=== PATIENT | male | born 1945 | race Caucasian/White ===

== ENCOUNTER 2017-06-10 13:37 | Inpatient (IN) | payer MEDICARE ==
[2017-06-10] MEDS: NS 1,000 ML IV ×6 (13:49→21:40)
[2017-06-10 14:16] LABS: HEMATOCRIT 24.8 % (42.0-52.0); HEMOGLOBIN 8.3 g/dl (14.0-18.0); MEAN CORPUSCULAR HEMOGLOBIN 30.3 pg (27.0-33.0); MEAN CORPUSCULAR HGB CONC 33.5 g/dl (32.0-36.5); MEAN CORPUSCULAR VOLUME 90.5 fl (80.0-96.0); PLATELET COUNT, AUTOMATED 183 10^3/uL (150-450); RED BLOOD COUNT 2.74 10^6/uL (4.30-6.10); RED CELL DISTRIBUTION WIDTH 16.4 % (11.5-14.5); WHITE BLOOD COUNT 13.6 10^3/uL (4.0-10.0)
[2017-06-10 14:19] LABS: ADD MANUAL DIFFER YES; DIFF SLIDE NUMBER 231; POSITIVE DIFF POS FLAG; POSITIVE MORPH POS FLAG
[2017-06-10 14:38] LABS: ALBUMIN 3.2 GM/DL (3.2-5.2); ALBUMIN/GLOBULIN RATIO 0.89 (1.00-1.93); ALKALINE PHOSPHATASE 46 U/L (45-117); ALT/SGPT 19 U/L (12-78); ANION GAP 11 MEQ/L (8-16); AST/SGOT 16 U/L (7-37); BILIRUBIN,DIRECT 0.2 MG/DL (0.0-0.2); BILIRUBIN,TOTAL 0.7 MG/DL (0.2-1.0); BLOOD UREA NITROGEN 39 MG/DL (7-18); CALCIUM LEVEL 8.4 MG/DL (8.8-10.2); CARBON DIOXIDE LEVEL 24 MEQ/L (21-32); CHLORIDE LEVEL 95 MEQ/L (98-107); CREATININE FOR GFR 2.12 MG/DL (0.70-1.30); GLUCOSE, FASTING 180 MG/DL (70-100); LIPASE 158 U/L (73-393); POTASSIUM SERUM 4.7 MEQ/L (3.5-5.1); SODIUM LEVEL 130 MEQ/L (136-145); TOTAL PROTEIN 6.8 GM/DL (6.4-8.2)
[2017-06-10 14:43] LABS: LACTIC ACID SEPSIS PROTOCOL 2.5 MMOL/L (0.4-2.0)
[2017-06-10 14:43] LABS: ANISOCYTOSIS 1+; BANDS 4 % (< 11); LYMPHOCYTES 4 % (16-52); MONOCYTES 3 % (0-8); NEUTROPHILS 89 % (35-75); PLATELET ESTIMATE NORMAL (NORMAL)
[2017-06-10 15:15] LABS: CK-MB VALUE MASS 2.2 NG/ML (0.0-3.6); CPK CREATINE PHOSPHOKINASE 128 U/L (39-308); MB/CK RELATIVE INDEX 1.71 (< OR =4); TROPONIN I 0.14 NG/ML (< 0.10)
[2017-06-10] MEDS: CEFTRIAXONE SOD 2 GM in APPROPRIATE DILUENT 1 EA IV (15:55)
[2017-06-10 16:05] LABS: APPEARANCE, URINE HAZY (CLEAR); BACTERIA, URINE AUTO 1+ (NEGATIVE); BILIRUBIN, URINE AUTO NEGATIVE (NEGATIVE); BLOOD, URINE BLOOD NEGATIVE (NEGATIVE); COLOR, URINE YELLOW (YELLOW); GLUCOSE, URINE (UA) AUTO NEGATIVE (NEGATIVE); KETONE, URINE AUTO NEGATIVE (NEGATIVE); LEUKOCYTE ESTERASE, URINE AUTO 2+ (NEGATIVE); MUCUS, URINE SMALL (NEGATIVE); NITRITE, URINE AUTO NEGATIVE (NEGATIVE); PROTEIN, URINE AUTO NEGATIVE (NEGATIVE); RBC, URINE AUTO 2 /HPF (0-3); SPECIFIC GRAVITY URINE AUTO 1.015 (1.002-1.035); SQUAMOUS EPITHELIAL CELL UR AU 0 /HPF (0-6); UROBILINOGEN, URINE AUTO 0.2 mg/dL (0.0-2.0); WBC, URINE AUTO 15 /HPF (0-3)
[2017-06-10] MEDS ORDERED: METAL LOCK LOOP XX (17:03)
[2017-06-10] MEDS: HumaLOG INSULIN (NovoLOG) PER UNIT SC ×2 (17:30→21:00)
[2017-06-10] MEDS ORDERED: GLUCAGON FOR INJ 1 MG VIAL (J1610) SC (17:30)
[2017-06-10] MEDS ORDERED: DEXTROSE 50% 50 ML SYRINGE IV (17:30)
[2017-06-10] MEDS ORDERED: ACETAMINOPHEN TAB 650MG DOSE (2X325MG) PO (17:30)
[2017-06-10] MEDS ORDERED: ONDANSETRON 4MG/2ML VIAL (J2405) IV (17:30)
[2017-06-10] MEDS ORDERED: GLUCOSE 4 GM CHEW TABLET PO (17:30)
[2017-06-10] MEDS ORDERED: DOXYCYCLINE HYCLATE 100 MG in D5W MINI-BAG PLUS 100 ML IV (20:00)
[2017-06-10 20:45] LABS: BEDSIDE GLUCOSE 180 MG/DL (83-110)
[2017-06-10] MEDS: HEPARIN SOD (PORCINE) 5000 UNITS/ML VIAL SC (21:40)
[2017-06-10] MEDS: SIMVASTATIN 5 MG TAB PO (21:41)
[2017-06-10] MEDS: PIPERACILLIN/TAZOBACTAM SOD 2.25 GM in APPROPRIATE DILUENT 1 EA IV (21:41)
[2017-06-10 22:02] LABS: BEDSIDE GLUCOSE 203 MG/DL (83-110)
[2017-06-10] MEDS: DOXYCYCLINE HYCLATE 100 MG in D5W MINI-BAG PLUS 100 ML IV (22:49)
[2017-06-10] MEDS: NS 500 ML IV (23:00)
[2017-06-11 00:48] LABS: CK-MB VALUE MASS 2.1 NG/ML (0.0-3.6); CPK CREATINE PHOSPHOKINASE 122 U/L (39-308); MB/CK RELATIVE INDEX 1.72 (< OR =4); TROPONIN I 0.26 NG/ML (< 0.10)
[2017-06-11] MEDS: NS 1,000 ML IV ×2 (03:00→04:59)
[2017-06-11] MEDS: PIPERACILLIN/TAZOBACTAM SOD 2.25 GM in APPROPRIATE DILUENT 1 EA IV ×4 (04:59→21:51)
[2017-06-11] MEDS: HEPARIN SOD (PORCINE) 5000 UNITS/ML VIAL SC ×3 (05:05→21:44)
[2017-06-11 07:33] LABS: HEMATOCRIT 24.5 % (42.0-52.0); MEAN CORPUSCULAR HEMOGLOBIN 29.7 pg (27.0-33.0); MEAN CORPUSCULAR HGB CONC 32.7 g/dl (32.0-36.5); MEAN CORPUSCULAR VOLUME 91.1 fl (80.0-96.0); PLATELET COUNT, AUTOMATED 193 10^3/uL (150-450); RED BLOOD COUNT 2.69 10^6/uL (4.30-6.10); RED CELL DISTRIBUTION WIDTH 16.5 % (11.5-14.5); WHITE BLOOD COUNT 7.8 10^3/uL (4.0-10.0)
[2017-06-11 07:56] LABS: ALBUMIN 2.6 GM/DL (3.2-5.2); ALKALINE PHOSPHATASE 45 U/L (45-117); ALT/SGPT 20 U/L (12-78); ANION GAP 10 MEQ/L (8-16); AST/SGOT 18 U/L (7-37); BILIRUBIN,TOTAL 0.4 MG/DL (0.2-1.0); BLOOD UREA NITROGEN 30 MG/DL (7-18); CALCIUM LEVEL 7.2 MG/DL (8.8-10.2); CARBON DIOXIDE LEVEL 21 MEQ/L (21-32); CHLORIDE LEVEL 109 MEQ/L (98-107); CK-MB VALUE MASS 2.7 NG/ML (0.0-3.6); CPK CREATINE PHOSPHOKINASE 146 U/L (39-308); CREATININE FOR GFR 1.51 MG/DL (0.70-1.30); GLOMERULAR FILTRATION RATE 48.9 (>42); GLUCOSE, FASTING 140 MG/DL (70-100); MAGNESIUM LEVEL 1.7 MG/DL (1.8-2.4); MB/CK RELATIVE INDEX 1.84 (< OR =4); SODIUM LEVEL 140 MEQ/L (136-145); TOTAL PROTEIN 6.3 GM/DL (6.4-8.2); TROPONIN I 0.28 NG/ML (< 0.10)
[2017-06-11] MEDS: HumaLOG INSULIN (NovoLOG) PER UNIT SC ×4 (08:49→20:02)
[2017-06-11] MEDS: MAG SULF 1GM/100ML (MAG RUN) 1 GM in APPROPRIATE DILUENT 1 EA IV ×2 (08:58→11:14)
[2017-06-11] MEDS: DOXYCYCLINE HYCLATE 100 MG in D5W MINI-BAG PLUS 100 ML IV ×2 (11:14→22:37)
[2017-06-11 11:56] LABS: BEDSIDE GLUCOSE 180 MG/DL (83-110)
[2017-06-11 15:53] LABS: CPK CREATINE PHOSPHOKINASE 160 U/L (39-308); TROPONIN I 0.22 NG/ML (< 0.10)
[2017-06-11 15:54] LABS: CK-MB VALUE MASS 3.2 NG/ML (0.0-3.6)
[2017-06-11 16:47] LABS: BEDSIDE GLUCOSE 216 MG/DL (83-110)
[2017-06-11] MEDS: diphenhydrAMINE 25 MG CAP PO (20:34)
[2017-06-11] MEDS: SIMVASTATIN 5 MG TAB PO (20:34)
[2017-06-11] MEDS: zolPIDEM TARTRATE 5 MG TAB PO (22:36)
[2017-06-12] MEDS ORDERED: IPRATROPIUM 0.5MG/ALBUTEROL 2.5MG INH SOL UD 3ML (DUONEB)(J7620) NEB (02:30)
[2017-06-12 02:39] LABS: BEDSIDE GLUCOSE 166 MG/DL (83-110)
[2017-06-12] MEDS: FUROSEMIDE 20 MG/2 ML VIAL (J1940) IV (03:10)
[2017-06-12] MEDS: PIPERACILLIN/TAZOBACTAM SOD 2.25 GM in APPROPRIATE DILUENT 1 EA IV (04:21)
[2017-06-12 05:51] LABS: HEMATOCRIT 24.8 % (42.0-52.0); HEMOGLOBIN 7.8 g/dl (14.0-18.0); MEAN CORPUSCULAR HEMOGLOBIN 29.8 pg (27.0-33.0); MEAN CORPUSCULAR HGB CONC 31.5 g/dl (32.0-36.5); MEAN CORPUSCULAR VOLUME 94.7 fl (80.0-96.0); PLATELET COUNT, AUTOMATED 212 10^3/uL (150-450); RED BLOOD COUNT 2.62 10^6/uL (4.30-6.10); RED CELL DISTRIBUTION WIDTH 16.4 % (11.5-14.5); WHITE BLOOD COUNT 10.1 10^3/uL (4.0-10.0)
[2017-06-12 06:05] LABS: ALBUMIN 2.5 GM/DL (3.2-5.2); ALBUMIN/GLOBULIN RATIO 0.69 (1.00-1.93); ALKALINE PHOSPHATASE 46 U/L (45-117); ALT/SGPT 18 U/L (12-78); ANION GAP 9 MEQ/L (8-16); AST/SGOT 14 U/L (7-37); BILIRUBIN,TOTAL 0.3 MG/DL (0.2-1.0); BLOOD UREA NITROGEN 27 MG/DL (7-18); CALCIUM LEVEL 7.6 MG/DL (8.8-10.2); CARBON DIOXIDE LEVEL 22 MEQ/L (21-32); CHLORIDE LEVEL 112 MEQ/L (98-107); CREATININE FOR GFR 1.36 MG/DL (0.70-1.30); GLOMERULAR FILTRATION RATE 55.2 (>42); GLUCOSE, FASTING 180 MG/DL (70-100); MAGNESIUM LEVEL 2.3 MG/DL (1.8-2.4); POTASSIUM SERUM 4.1 MEQ/L (3.5-5.1); SODIUM LEVEL 143 MEQ/L (136-145); TOTAL PROTEIN 6.1 GM/DL (6.4-8.2)
[2017-06-12] MEDS: HEPARIN SOD (PORCINE) 5000 UNITS/ML VIAL SC ×3 (06:32→21:49)
[2017-06-12] MEDS: LevoFLOXacin 500 MG TABLET PO (09:19)
[2017-06-12] MEDS: HumaLOG INSULIN (NovoLOG) PER UNIT SC ×4 (09:20→20:38)
[2017-06-12 16:36] LABS: BEDSIDE GLUCOSE 241 MG/DL (83-110)
[2017-06-12] MEDS: SIMVASTATIN 5 MG TAB PO (21:00)
[2017-06-13 05:33] LABS: HEMATOCRIT 26.2 % (42.0-52.0); MEAN CORPUSCULAR HEMOGLOBIN 29.2 pg (27.0-33.0); MEAN CORPUSCULAR HGB CONC 30.5 g/dl (32.0-36.5); MEAN CORPUSCULAR VOLUME 95.6 fl (80.0-96.0); PLATELET COUNT, AUTOMATED 237 10^3/uL (150-450); RED BLOOD COUNT 2.74 10^6/uL (4.30-6.10); RED CELL DISTRIBUTION WIDTH 16.2 % (11.5-14.5); WHITE BLOOD COUNT 8.9 10^3/uL (4.0-10.0)
[2017-06-13 05:48] LABS: ALBUMIN 2.6 GM/DL (3.2-5.2); ALKALINE PHOSPHATASE 54 U/L (45-117); ALT/SGPT 21 U/L (12-78); ANION GAP 11 MEQ/L (8-16); AST/SGOT 15 U/L (7-37); BILIRUBIN,TOTAL 0.4 MG/DL (0.2-1.0); BLOOD UREA NITROGEN 27 MG/DL (7-18); CALCIUM LEVEL 7.2 MG/DL (8.8-10.2); CARBON DIOXIDE LEVEL 20 MEQ/L (21-32); CHLORIDE LEVEL 114 MEQ/L (98-107); CREATININE FOR GFR 1.16 MG/DL (0.70-1.30); GLOMERULAR FILTRATION RATE > 60.0 (>42); GLUCOSE, FASTING 155 MG/DL (70-100); MAGNESIUM LEVEL 2.2 MG/DL (1.8-2.4); POTASSIUM SERUM 4.3 MEQ/L (3.5-5.1); SODIUM LEVEL 145 MEQ/L (136-145); TOTAL PROTEIN 5.5 GM/DL (6.4-8.2)
[2017-06-13] MEDS: HEPARIN SOD (PORCINE) 5000 UNITS/ML VIAL SC (06:00)
[2017-06-13] MEDS: LevoFLOXacin 500 MG TABLET PO (06:00)
[2017-06-13] MEDS ORDERED: LevoFLOXacin 500 MG TABLET As Ordered (06:12)
[2017-06-13] MEDS ORDERED: HEPARIN SOD (PORCINE) 5000 UNITS/ML VIAL As Ordered (06:12)
[2017-06-13] MEDS: HumaLOG INSULIN (NovoLOG) PER UNIT SC (08:10)
[2017-06-13 11:43] LABS: BEDSIDE GLUCOSE 133 MG/DL (83-110)
[2017-06-13 11:43] LABS: BEDSIDE GLUCOSE 202 MG/DL (83-110)
== END 2017-06-13 12:34 | disposition home or self-care (01) | DRG 872 ==
LOC: M ED 13:37 → M ED INP 17:06 → M PCU 20:59
DX: A41.9 Sepsis, unspecified organism (principal); N39.0 Urinary tract infection, site not specified; N17.9 Acute kidney failure, unspecified; E87.2 Acidosis; E87.1 Hypo-osmolality and hyponatremia; E11.9 Type 2 diabetes mellitus without complications; E78.5 Hyperlipidemia, unspecified; R33.9 Retention of urine, unspecified; S12.590S Other displaced fracture of sixth cervical vertebra, sequela; S12.6 Fracture of seventh cervical vertebra; G83.9 Paralytic syndrome, unspecified; R65.20 Severe sepsis without septic shock; N31.9 Neuromuscular dysfunction of bladder, unspecified; D64.9 Anemia, unspecified; Z79.84 Long term (current) use of oral hypoglycemic drugs; Z79.899 Other long term (current) drug therapy; Z87.891 Personal history of nicotine dependence

== ENCOUNTER 2022-09-12 14:11 | Inpatient (IN) | payer MEDICARE ==
[~2022-09-12] VITALS: Ht 180.3 cm; Wt 83.8 kg
[~2022-09-12 14:11] MED LIST: /ASCO250TA PO; CIPR500T89 PO; COUM1TAB18 PO; CRAN400T3 PO; LASI20TA PO; LASI40TA PO; LEVA1TAB2 PO; METF500T PO; MULTTAB50 PO; NITR100C37 PO; OXYC1TAB23 PO; POTA-136 PO; POTA2INJ30 PO; POTA75TA PO; SIMV-253 PO; SIMV5TAB12 PO; SULF400T14 PO; TRIM100T16 PO; TYLE1TAB5 PO; TYLE325T5 PO; ULTR50TA PO
[2022-09-12 16:07] LABS: BASO % 0.4 % (0.0-1.0); EOS # 0.2 10^3/uL (0.0-0.5); HEMATOCRIT 33.3 % (42.0-52.0); HEMOGLOBIN 10.5 g/dl (13.5-17.5); LYMPH # 0.5 10^3/uL (1.5-5.0); LYMPH % 4.5 % (24.0-44.0); MEAN CORPUSCULAR HEMOGLOBIN 30.4 pg (27.0-33.0); MEAN CORPUSCULAR HGB CONC 31.5 g/dl (32.0-36.5); MEAN CORPUSCULAR VOLUME 96.5 fl (80.0-96.0); MONO # 0.7 10^3/uL (0.0-0.8); MONO % 6.8 % (2.0-8.0); NEUTROPHILS # 9.1 10^3/uL (1.5-8.5); NEUTROPHILS % 85.6 % (36.0-66.0); PLATELET COUNT, AUTOMATED 221 10^3/uL (150-450); RED BLOOD COUNT 3.45 10^6/uL (4.30-6.10); WHITE BLOOD COUNT 10.7 10^3/uL (4.0-10.0)
[2022-09-12 16:58] LABS: ERYTHROCYTE SEDIMENTATION RATE 75 mm/hr (0-20)
[2022-09-12] MEDS ORDERED: ISOVUE-370 76% 100ML VIAL As Ordered ONE (17:47)
[2022-09-12] MEDS ORDERED: GLUCOSE 4GM CHEW TABLET PO PRN (20:40)
[2022-09-12] MEDS ORDERED: GLUCAGON INJ 1MG VIAL SC PRN (20:40)
[2022-09-12] MEDS ORDERED: DEXTROSE 50% 50ML SYRINGE IV PRN (20:40)
[2022-09-12] MEDS ORDERED: VANCOMYCIN HCL IV SCH (20:40)
[2022-09-12] MEDS ORDERED: FLUID PLACE HOLDER IV SCH (20:40)
[2022-09-12] MEDS: INSULIN LISPRO (NovoLOG) PER UNIT SC SCH (21:00)
[2022-09-12 21:14] LABS: APPEARANCE, URINE CLEAR (CLEAR); BACTERIA, URINE AUTO NEGATIVE (NEGATIVE); BILIRUBIN, URINE AUTO NEGATIVE (NEGATIVE); BLOOD, URINE BLOOD NEGATIVE (NEGATIVE); COLOR, URINE STRAW (YELLOW); GLUCOSE, URINE (UA) AUTO NEGATIVE (NEGATIVE); KETONE, URINE AUTO NEGATIVE (NEGATIVE); LEUKOCYTE ESTERASE, URINE AUTO NEGATIVE (NEGATIVE); NITRITE, URINE AUTO NEGATIVE (NEGATIVE); PROTEIN, URINE AUTO NEGATIVE (NEGATIVE); RBC, URINE AUTO 0 /HPF (0-3); SPECIFIC GRAVITY URINE AUTO 1.028 (1.002-1.035); SQUAMOUS EPITHELIAL CELL UR AU 0 /HPF (0-6); UROBILINOGEN, URINE AUTO 0.2 mg/dL (0.0-2.0); WBC, URINE AUTO 3 /HPF (0-3)
[2022-09-12] MEDS ORDERED: VITA500C24 PO (21:14)
[2022-09-12] MEDS ORDERED: TRIM100T16 PO (21:14)
[2022-09-12] MEDS ORDERED: FURO20TA2 PO (21:14)
[2022-09-12] MEDS ORDERED: SIMV10TA21 PO (21:14)
[2022-09-12] MEDS ORDERED: IRONTAB3 PO (21:14)
[2022-09-12] MEDS ORDERED: ACET-1349 PO (21:14)
[2022-09-12] MEDS ORDERED: POTA10CA33 PO (21:14)
[2022-09-12] MEDS ORDERED: THERTAB52 PO (21:14)
[2022-09-12] MEDS ORDERED: DULA3PEN INJ (21:14)
[2022-09-12] MEDS ORDERED: PARO5TAB PO (21:14)
[2022-09-12] MEDS ORDERED: CRAN400C PO (21:14)
[2022-09-12] MEDS ORDERED: GLIP10TA18 PO (21:14)
[2022-09-12] MEDS ORDERED: HOME MED LIST COMPLETE! XX SCH (21:15)
[2022-09-12] MEDS: PIPERACILLIN/TAZOBACTAM SOD 4.5 GM in D5W MINI-BAG PLUS 50 ML IV SCH (21:35)
[2022-09-12 22:33] LABS: RSV AMPLIFICATION NEGATIVE (NEGATIVE)
[2022-09-12 23:15] VITALS: BP 122/74
[2022-09-12] MEDS ORDERED: ANALGESIC BALM CRM 3OZ TOP PRN (23:40)
[2022-09-13] MEDS ORDERED: UNRESOLVED CLARIFICATION ENTRY XX SCH (00:01)
[2022-09-13] MEDS ORDERED: VANCOMYCIN HCL 750 MG, VIAL MATE ADAPTER 1 EACH in D5W 250 ML IV ONE ×2 (01:00→02:00)
[2022-09-13 06:00] VITALS: BP 151/93
[2022-09-13] MEDS: FUROSEMIDE 20 MG TAB PO SCH ×3 (06:13→15:22)
[2022-09-13] MEDS: PIPERACILLIN/TAZOBACTAM SOD 4.5 GM in D5W MINI-BAG PLUS 50 ML IV SCH ×3 (06:13→21:32)
[2022-09-13 06:14] LABS: HEMATOCRIT 33.2 % (42.0-52.0); HEMOGLOBIN 10.5 g/dl (13.5-17.5); MEAN CORPUSCULAR HEMOGLOBIN 30.8 pg (27.0-33.0); MEAN CORPUSCULAR HGB CONC 31.6 g/dl (32.0-36.5); MEAN CORPUSCULAR VOLUME 97.4 fl (80.0-96.0); PLATELET COUNT, AUTOMATED 223 10^3/uL (150-450); RED BLOOD COUNT 3.41 10^6/uL (4.30-6.10); WHITE BLOOD COUNT 9.5 10^3/uL (4.0-10.0)
[2022-09-13 06:35] LABS: CALCIUM LEVEL 8.7 MG/DL (8.3-10.6); CREATININE FOR GFR 1.51 MG/DL (0.70-1.30); GLOMERULAR FILTRATION RATE 48.2 (>42); POTASSIUM SERUM 4.2 MMOL/L (3.5-5.1)
[2022-09-13] MEDS: ACETAMINOPHEN TAB 650MG DOSE (2X325MG) PO PRN ×2 (06:37→22:08)
[2022-09-13] MEDS: INSULIN LISPRO (NovoLOG) PER UNIT SC SCH ×4 (07:30→20:46)
[2022-09-13] MEDS: PARoxetine 10MG TABLET PO SCH (09:19)
[2022-09-13] MEDS: SIMVASTATIN 10 MG TAB PO SCH (09:19)
[2022-09-13] MEDS: UNRESOLVED PATIENT OWN MED ORDER XX SCH (09:34)
[2022-09-13 13:48] VITALS: BP 144/73
[2022-09-13] MEDS: VANCOMYCIN HCL 1,000 MG, VIAL MATE ADAPTER 1 EACH in D5W 250 ML IV SCH (15:22)
[2022-09-13 19:58] VITALS: BP 122/62
[2022-09-13] MEDS ORDERED: RAMELTEON 8 MG TAB (ROZEREM) PO PRN (21:40)
[2022-09-14] MEDS: PIPERACILLIN/TAZOBACTAM SOD 4.5 GM in D5W MINI-BAG PLUS 50 ML IV SCH (05:24)
[2022-09-14 05:45] VITALS: BP 142/75
[2022-09-14] MEDS: FUROSEMIDE 20 MG TAB PO SCH (06:41)
[2022-09-14] MEDS: INSULIN LISPRO (NovoLOG) PER UNIT SC SCH ×4 (07:30→21:00)
[2022-09-14] MEDS: UNRESOLVED PATIENT OWN MED ORDER XX SCH ×2 (07:39→08:12)
[2022-09-14] MEDS: SIMVASTATIN 10 MG TAB PO SCH (08:21)
[2022-09-14] MEDS: PARoxetine 10MG TABLET PO SCH (08:21)
[2022-09-14] MEDS: ACETAMINOPHEN TAB 650MG DOSE (2X325MG) PO PRN ×2 (08:21→22:48)
[2022-09-14 10:33] LABS: BASO # 0.1 10^3/uL (0.0-0.2); BASO % 0.6 % (0.0-1.0); EOS # 0.3 10^3/uL (0.0-0.5); EOS % 3.8 % (0.0-3.0); HEMATOCRIT 30.3 % (42.0-52.0); HEMOGLOBIN 9.7 g/dl (13.5-17.5); LYMPH # 0.5 10^3/uL (1.5-5.0); LYMPH % 5.8 % (24.0-44.0); MEAN CORPUSCULAR HEMOGLOBIN 30.9 pg (27.0-33.0); MEAN CORPUSCULAR VOLUME 96.5 fl (80.0-96.0); MONO # 0.4 10^3/uL (0.0-0.8); MONO % 5.4 % (2.0-8.0); NEUTROPHILS # 6.7 10^3/uL (1.5-8.5); NEUTROPHILS % 83.5 % (36.0-66.0); PLATELET COUNT, AUTOMATED 217 10^3/uL (150-450); RED BLOOD COUNT 3.14 10^6/uL (4.30-6.10)
[2022-09-14 10:39] LABS: ERYTHROCYTE SEDIMENTATION RATE 68 mm/hr (0-20)
[2022-09-14 11:02] LABS: C REACTIVE PROTEIN QUANTITATIV 19.5 MG/DL (<1.0)
[2022-09-14 11:03] LABS: ALBUMIN 2.5 G/DL (3.2-5.2); BILIRUBIN,TOTAL 0.4 MG/DL (0.3-1.2); CALCIUM LEVEL 8.4 MG/DL (8.3-10.6); CREATININE FOR GFR 1.96 MG/DL (0.70-1.30); GLOMERULAR FILTRATION RATE 35.7 (>42); MAGNESIUM LEVEL 2.2 MG/DL (1.8-2.4); POTASSIUM SERUM 4.2 MMOL/L (3.5-5.1); TOTAL PROTEIN 5.3 G/DL (5.7-8.2)
[2022-09-14 14:00] VITALS: BP 113/60
[2022-09-14] MEDS: VANCOMYCIN HCL 1,000 MG, VIAL MATE ADAPTER 1 EACH in D5W 250 ML IV SCH (15:19)
[2022-09-14] MEDS: TRIMETHOPRIM 100 MG PO SCH ×2 (15:19→15:23)
[2022-09-14 20:50] VITALS: BP 135/77
[2022-09-15 05:00] VITALS: BP 129/65
[2022-09-15] MEDS: INSULIN LISPRO (NovoLOG) PER UNIT SC SCH ×2 (07:30→12:20)
[2022-09-15 07:36] LABS: BASO # 0.1 10^3/uL (0.0-0.2); BASO % 0.7 % (0.0-1.0); EOS # 0.4 10^3/uL (0.0-0.5); EOS % 4.8 % (0.0-3.0); HEMATOCRIT 31.2 % (42.0-52.0); LYMPH # 0.5 10^3/uL (1.5-5.0); LYMPH % 6.1 % (24.0-44.0); MEAN CORPUSCULAR HEMOGLOBIN 31.2 pg (27.0-33.0); MEAN CORPUSCULAR HGB CONC 32.1 g/dl (32.0-36.5); MEAN CORPUSCULAR VOLUME 97.2 fl (80.0-96.0); MONO # 0.5 10^3/uL (0.0-0.8); MONO % 6.2 % (2.0-8.0); NEUTROPHILS # 7.1 10^3/uL (1.5-8.5); NEUTROPHILS % 81.2 % (36.0-66.0); PLATELET COUNT, AUTOMATED 230 10^3/uL (150-450); RED BLOOD COUNT 3.21 10^6/uL (4.30-6.10); WHITE BLOOD COUNT 8.7 10^3/uL (4.0-10.0)
[2022-09-15 08:02] LABS: CALCIUM LEVEL 8.7 MG/DL (8.3-10.6); CREATININE FOR GFR 1.65 MG/DL (0.70-1.30); GLOMERULAR FILTRATION RATE 43.5 (>42); MAGNESIUM LEVEL 2.1 MG/DL (1.8-2.4); POTASSIUM SERUM 4.1 MMOL/L (3.5-5.1)
[2022-09-15] MEDS: SIMVASTATIN 10 MG TAB PO SCH (09:54)
[2022-09-15] MEDS: TRIMETHOPRIM 100 MG PO SCH (09:54)
[2022-09-15] MEDS: PARoxetine 10MG TABLET PO SCH (09:54)
[2022-09-15] MEDS ORDERED: cefTRIAXone SOD 2 GM in D5W MINI-BAG PLUS 50 ML IV SCH (10:00)
[2022-09-15 14:00] VITALS: BP 154/73
[2022-09-15] MEDS ORDERED: LASI20TA3 PO (15:58)
[2022-09-15] MEDS ORDERED: ACET1TAB55 PO (15:58)
[2022-09-15] MEDS ORDERED: PROB250C PO (15:59)
[2022-09-15] MEDS ORDERED: AMOX875T2 PO (15:59)
== END 2022-09-15 17:47 | disposition home health service (06) | DRG 579 ==
LOC: M ED 14:11 → M ED INP 21:03 → M MSPAV 23:10
PROVIDERS: ADMIT Family Medicine; ATTEND Internal Medicine
PROC: 0KBF0ZZ Excision of Right Trunk Muscle, Open Approach (ICD-10-PCS; principal; 2022-09-13)
DX: L89.314 Pressure ulcer of right buttock, stage 4 (principal); G82.50 Quadriplegia, unspecified; E11.9 Type 2 diabetes mellitus without complications; E78.5 Hyperlipidemia, unspecified; R33.9 Retention of urine, unspecified; F41.9 Anxiety disorder, unspecified; L89.151 Pressure ulcer of sacral region, stage 1; F32.A Depression, unspecified; Z66 Do not resuscitate; Z79.84 Long term (current) use of oral hypoglycemic drugs; Z79.899 Other long term (current) drug therapy

== ENCOUNTER 2023-02-04 15:52 | Observation (INO) | payer MEDICARE ==
[2023-02-04] VITALS (8 sets, daily range): BP systolic 107–149; BP diastolic 56–84; TEMP 98.2–98.8; O2SAT 93–98
[~2023-02-04] VITALS: Ht 177.8 cm; Wt 78.5 kg
[~2023-02-04 15:52] MED LIST changes: +ACET-1349 PO; +ACET1TAB55 PO; +AMOX875T2 PO; +CRAN400C PO; +DULA3PEN INJ; +FURO20TA2 PO; +GLIP10TA18 PO; +IRONTAB3 PO; +LASI20TA3 PO; +PARO5TAB PO; +POTA10CA60 PO; +PROB250C PO; +SIMV10TA21 PO; +THERTAB52 PO; +VITA500C24 PO
[2023-02-04] MEDS ORDERED: OXYB5TAB11 (16:03)
[2023-02-04] MEDS ORDERED: FURO20TA2 (16:03)
[2023-02-04 17:23] LABS: BASO % 0.2 % (0.0-1.0); EOS # 0.5 10^3/uL (0.0-0.5); EOS % 4.3 % (0.0-3.0); HEMATOCRIT 24.5 % (42.0-52.0); LYMPH # 0.4 10^3/uL (1.5-5.0); LYMPH % 3.6 % (24.0-44.0); MEAN CORPUSCULAR HEMOGLOBIN 23.7 pg (27.0-33.0); MEAN CORPUSCULAR HGB CONC 28.6 g/dl (32.0-36.5); MEAN CORPUSCULAR VOLUME 83.1 fl (80.0-96.0); MONO # 0.8 10^3/uL (0.0-0.8); MONO % 6.3 % (2.0-8.0); NEUTROPHILS # 10.4 10^3/uL (1.5-8.5); PLATELET COUNT, AUTOMATED 295 10^3/uL (150-450); RED BLOOD COUNT 2.95 10^6/uL (4.30-6.10); WHITE BLOOD COUNT 12.2 10^3/uL (4.0-10.0)
[2023-02-04 19:15] LABS: RSV AMPLIFICATION NEGATIVE (NEGATIVE)
[2023-02-04] MEDS ORDERED: INSULIN LISPRO (NovoLOG) PER UNIT SC SCH (21:00)
[2023-02-04] MEDS ORDERED: GLUCOSE 4GM CHEW TABLET PO PRN (21:15)
[2023-02-04] MEDS ORDERED: ACETAMINOPHEN TAB 650MG DOSE (2X325MG) PO PRN (21:15)
[2023-02-04] MEDS ORDERED: GLUCAGON INJ 1MG VIAL SC PRN (21:15)
[2023-02-04] MEDS ORDERED: MOM 30ML SUSPENSION UDC PO PRN (21:15)
[2023-02-04] MEDS ORDERED: DEXTROSE 50% 50ML SYRINGE IV PRN (21:15)
[2023-02-04] MEDS ORDERED: RISATAB3 PO (22:34)
[2023-02-04] MEDS ORDERED: OXYB5TAB11 PO (22:34)
[2023-02-04] MEDS ORDERED: VITA100093 PO (22:34)
[2023-02-04] MEDS ORDERED: PANT40TA29 PO (22:34)
[2023-02-04] MEDS ORDERED: FURO20TA2 PO (22:34)
[2023-02-04] MEDS ORDERED: VITMTA PO (22:34)
[2023-02-04] MEDS ORDERED: TRIM100T16 PO (22:34)
[2023-02-04] MEDS ORDERED: TRAZ-257 PO (22:34)
[2023-02-04] MEDS ORDERED: FERR325T18 PO (22:34)
[2023-02-04] MEDS ORDERED: IBUP-1720 PO ×2 (22:34)
[2023-02-04] MEDS ORDERED: HOME MED LIST COMPLETE! XX SCH (22:35)
[2023-02-04 23:54] LABS: INR 1.24; PROTHROMBIN TIME 15.3 SECONDS (12.5-14.5)
[2023-02-04 23:55] LABS: PARTIAL THROMBOPLASTIN TIME 39.8 SECONDS (24.8-34.2)
[2023-02-05] VITALS (16 sets, daily range): BP systolic 120–220; BP diastolic 50–98; TEMP 97.1–99.1; O2SAT 93–98
[2023-02-05 06:05] LABS: HEMATOCRIT 28.7 % (42.0-52.0); HEMOGLOBIN 8.5 g/dl (13.5-17.5); MEAN CORPUSCULAR HGB CONC 29.6 g/dl (32.0-36.5); MEAN CORPUSCULAR VOLUME 84.4 fl (80.0-96.0); PLATELET COUNT, AUTOMATED 293 10^3/uL (150-450); WHITE BLOOD COUNT 8.4 10^3/uL (4.0-10.0)
[2023-02-05] MEDS ORDERED: ENOXAPARIN 40MG/0.4ML SYRINGE (J1650 PER 10MG) SC SCH (09:00)
[2023-02-05] MEDS ORDERED: FUROSEMIDE 20 MG TAB PO SCH (09:00)
[2023-02-05] MEDS ORDERED: ASCORBIC ACID 500 MG TAB PO SCH (09:00)
[2023-02-05] MEDS ORDERED: SIMVASTATIN 10 MG TAB PO SCH (09:00)
[2023-02-05] MEDS ORDERED: VITAMIN D 1,000 INTERNATIONAL UNITS TABLET PO SCH (09:00)
[2023-02-05] MEDS ORDERED: LACTOBACILLUS ACIDOPHILUS CAP (BACID) PO SCH (09:00)
[2023-02-05] MEDS ORDERED: PARoxetine 10MG TABLET PO SCH (09:00)
[2023-02-05] MEDS ORDERED: oxyBUTYnin 5 MG TAB PO SCH (09:00)
[2023-02-05] MEDS ORDERED: PANTOPRAZOLE 40MG TAB (PROTONIX) PO SCH (09:00)
[2023-02-05] MEDS ORDERED: FERROUS SULFATE 325MG TAB PO SCH (09:00)
[2023-02-05] MEDS: INSULIN LISPRO (NovoLOG) PER UNIT SC SCH ×3 (09:07→17:15)
[2023-02-05 09:43] LABS: GLUCOSE, FASTING 165 MG/DL
[2023-02-05 09:44] LABS: ALKALINE PHOSPHATASE 69 U/L (40-129); ALT/SGPT 33 U/L (1-41); AST/SGOT 32 U/L (5-40); BLOOD UREA NITROGEN 40 MG/DL (7-21); CALCIUM LEVEL 8.8 MG/DL (8.8-10.2); CARBON DIOXIDE LEVEL 23 MEQ/L (22-30); CHLORIDE LEVEL 99 MEQ/L (98-107); CREATININE FOR GFR 0.9 MG/DL (0.7-1.5); GLOMERULAR FILTRATION RATE > 60.0 (>42); POTASSIUM SERUM 4.9 MEQ/L (3.6-5.0); SODIUM LEVEL 135 MEQ/L (134-153)
[2023-02-05 09:45] LABS: TOTAL PROTEIN 5.7 G/DL (6.3-8.2)
[2023-02-05 09:46] LABS: ALBUMIN 3.1 G/DL (3.9-5.0); IRON (FE) 13 UG/DL (42-135); PERCENT SATURATION 7.2 %; TOTAL IRON BINDING CAPACITY 181 UG/DL (250-450)
[2023-02-05 09:50] LABS: BILIRUBIN,TOTAL < 0.7 MG/DL (0.2-1.3)
[2023-02-05 09:51] LABS: BILIRUBIN,DIRECT < 0.2 MG/DL (0.1-0.4)
[2023-02-05] MEDS ORDERED: FUROSEMIDE 20MG/2ML VIAL IV ONE (10:30)
[2023-02-05] MEDS ORDERED: FLUZONE HIGH DOSE(65YR UP)QUAD/PF 240MCG/0.7ML SYRINGE IM.IMMUN ONE (11:00)
[2023-02-05] MEDS ORDERED: hydrALAZINE 20MG/ML 1ML VIAL IV ONE ×3 (12:30→17:00)
[2023-02-05 13:12] LABS: BLOOD UREA NITROGEN 31 MG/DL (7-21); CREATININE FOR GFR 0.8 MG/DL (0.7-1.5); GLOMERULAR FILTRATION RATE > 60.0 (>42); GLUCOSE, FASTING 102 MG/DL
[2023-02-05 13:13] LABS: POTASSIUM SERUM 4.3 MEQ/L (3.6-5.0); SODIUM LEVEL 144 MEQ/L (134-153)
[2023-02-05 13:14] LABS: CALCIUM LEVEL 9.1 MG/DL (8.8-10.2); CARBON DIOXIDE LEVEL 25 MEQ/L (22-30); CHLORIDE LEVEL 108 MEQ/L (98-107)
[2023-02-05] MEDS ORDERED: FERRIC CARBOXYMALTOSE INJ 750 MG, VIAL MATE ADAPTER 1 EACH in NS 250 ML IV ONE (16:00)
[2023-02-05] MEDS ORDERED: AMLO1TAB24 PO (16:50)
[2023-02-05] MEDS ORDERED: AMLO1TAB25 PO (17:09)
[2023-02-05 17:48] LABS: HEMATOCRIT 31.4 % (42.0-52.0); HEMOGLOBIN 9.5 g/dl (13.5-17.5)
[2023-02-05] MEDS ORDERED: traZODone 100 MG TAB PO SCH (21:00)
[2023-02-08 12:06] LABS: VITAMIN B12 LEVEL 588 PG/ML (232-1245)
[2023-02-08 12:07] LABS: FERRITIN 1107 NG/ML (5.0-244)
== END 2023-02-05 18:40 | disposition home health service (06) ==
LOC: M ED 15:52 → M ED INP 15:53 → M MSPAV 23:10 → M PCU 02-05 11:58
PROVIDERS: ADMIT Internal Medicine; ATTEND Internal Medicine
DX: D64.9 Anemia, unspecified (principal); L89.309 Pressure ulcer of unspecified buttock, unspecified stage; D50.9 Iron deficiency anemia, unspecified; E11.9 Type 2 diabetes mellitus without complications; F41.9 Anxiety disorder, unspecified; F32.A Depression, unspecified; E78.5 Hyperlipidemia, unspecified; R33.9 Retention of urine, unspecified; S12.9XXS Fracture of neck, unspecified, sequela; G82.20 Paraplegia, unspecified; I10 Essential (primary) hypertension; Z79.899 Other long term (current) drug therapy; Z79.84 Long term (current) use of oral hypoglycemic drugs; Z87.440 Personal history of urinary (tract) infections; Z80.1 Family history of malignant neoplasm of trachea, bronchus and lung; Z83.79 Family history of other diseases of the digestive system; Z66 Do not resuscitate; Z23 Encounter for immunization
CPT/HCPCS: 36415; 36430; 71045; 80047; 80048; 80076; 82607; 82728; 82746; 83550; 85014; 85018; 85025; 85027; 85046; 85384; 85610; 85730; 86850; 86900; 86901; 86920; 87631; 90662; 93005; 93041; 94760; 96372; 96374; 96375; 96376; 99285; G0008; G0378; J0360; J1439; J1650; J1815; J1940; P9016

== ENCOUNTER 2023-03-10 01:25 | Inpatient (IN) | payer MEDICARE ==
[~2023-03-10] VITALS: Ht 175.3 cm; Wt 76.1 kg
[~2023-03-10 01:25] MED LIST changes: +AMLO1TAB24 PO; +AMLO1TAB25 PO; +FERR325T18 PO; +FURO20TA2; +IBUP-1720 PO; +OXYB5TAB11; +OXYB5TAB11 PO; +PANT40TA29 PO; +RISATAB3 PO; +TRAZ-257 PO; +VITA100093 PO; +VITMTA PO
[2023-03-10] MEDS ORDERED: NS 1,000 ML IV ONE (02:05)
[2023-03-10 02:45] LABS: BASO % 0.2 % (0.0-1.0); EOS # 0.2 10^3/uL (0.0-0.5); EOS % 1.4 % (0.0-3.0); HEMATOCRIT 26.7 % (42.0-52.0); LYMPH # 0.3 10^3/uL (1.5-5.0); LYMPH % 2.2 % (24.0-44.0); MEAN CORPUSCULAR HEMOGLOBIN 26.7 pg (27.0-33.0); MONO # 1.1 10^3/uL (0.0-0.8); MONO % 7.2 % (2.0-8.0); NEUTROPHILS # 13.8 10^3/uL (1.5-8.5); NEUTROPHILS % 88.4 % (36.0-66.0); PLATELET COUNT, AUTOMATED 296 10^3/uL (150-450); WHITE BLOOD COUNT 15.6 10^3/uL (4.0-10.0)
[2023-03-10 03:10] LABS: LIPASE 46 U/L (12-53)
[2023-03-10 03:12] LABS: ALKALINE PHOSPHATASE 59 U/L (46-116); ALT/SGPT 38 U/L (7.0-40); AST/SGOT 39 U/L (<34); BILIRUBIN,DIRECT < 0.1 MG/DL (<0.4); BILIRUBIN,TOTAL < 0.2 MG/DL (0.3-1.2); BLOOD UREA NITROGEN 54 MG/DL (9-23); CALCIUM LEVEL 8.2 MG/DL (8.3-10.6); CARBON DIOXIDE LEVEL 20 MMOL/L (20-31); CHLORIDE LEVEL 104 MMOL/L (98-107); CK-MB VALUE MASS < 1.0 NG/ML (<3.6); CREATININE FOR GFR 0.91 MG/DL (0.70-1.30); GLOMERULAR FILTRATION RATE > 60.0 (>42); GLUCOSE, FASTING 119 MG/DL (74-106); POTASSIUM SERUM 4.5 MMOL/L (3.5-5.1); SODIUM LEVEL 134 MMOL/L (136-145); TOTAL PROTEIN 5.5 G/DL (5.7-8.2)
[2023-03-10 03:15] LABS: CPK CREATINE PHOSPHOKINASE 20 U/L (46-171)
[2023-03-10 03:52] LABS: PROCALCITONIN 0.22 ng/ml
[2023-03-10 03:55] LABS: ABG HCO3 22.2 MMOL/L (22.0-26.0); ABG O2 SATURATION 97.2 % (95.0-99.0); ABG PARTIAL PRESSURE CO2 40.2 mmHg (35.0-45.0); ABG TOTAL CO2 23.4 MMOL/L (23.0-31.0)
[2023-03-10] MEDS ORDERED: ISOVUE-370 76% 100ML VIAL As Ordered ONE (04:38)
[2023-03-10 04:40] LABS: CK-MB VALUE MASS < 1.0 NG/ML (<3.6)
[2023-03-10 04:42] LABS: CPK CREATINE PHOSPHOKINASE 23 U/L (46-171); MB/CK RELATIVE INDEX 4.34 (< OR =4)
[2023-03-10] MEDS ORDERED: cefTRIAXone SOD 2 GM in D5W MINI-BAG PLUS 50 ML IV ONE (06:10)
[2023-03-10] MEDS ORDERED: VANCOMYCIN HCL 2,000 MG in D5W 500 ML IV ONE (06:10)
[2023-03-10] MEDS ORDERED: VANCOMYCIN HCL 1,000 MG, VIAL MATE ADAPTER 1 EACH in D5W 250 ML IV ONE (07:00)
[2023-03-10] MEDS ORDERED: VANCOMYCIN HCL 750 MG, VIAL MATE ADAPTER 1 EACH in D5W 250 ML IV ONE (08:00)
[2023-03-10] MEDS ORDERED: VANCOMYCIN HCL 1,000 MG, VIAL MATE ADAPTER 1 EACH in D5W 250 ML IV SCH (08:05)
[2023-03-10] MEDS ORDERED: MED REC IN PROGRESS XX SCH (08:25)
[2023-03-10] MEDS ORDERED: AMLO1TAB25 PO (08:41)
[2023-03-10] MEDS ORDERED: HOME MED LIST COMPLETE! XX SCH (08:45)
[2023-03-10] MEDS: BISACODYL 10MG SUPP PR SCH ×2 (10:50→21:00)
[2023-03-10] MEDS: PIPERACILLIN/TAZOBACTAM SOD 3.375 GM in D5W MINI-BAG PLUS 50 ML IV SCH ×3 (10:55→21:11)
[2023-03-10] MEDS: MIRALAX *UNIT DOSE* 17GM PACKET PO SCH (10:58)
[2023-03-10] MEDS: SENOKOT S TAB PO SCH ×2 (10:58→21:11)
[2023-03-10 11:40] VITALS: BP 138/73; TEMP 97.9; O2SAT 96
[2023-03-10] MEDS ORDERED: FUROSEMIDE 40MG/4ML VIAL IV ONE (12:00)
[2023-03-10] MEDS ORDERED: FLEET ENEMA PR SCH (14:00)
[2023-03-10] MEDS ORDERED: ACETAMINOPHEN TAB 650MG DOSE (2X325MG) PO PRN (17:15)
[2023-03-10] MEDS ORDERED: PILL CUTTER 1 EACH XX PRN (17:35)
[2023-03-10] MEDS: SIMVASTATIN 10 MG TAB PO SCH (17:48)
[2023-03-10] MEDS: oxyBUTYnin 5 MG TAB PO SCH (17:48)
[2023-03-10] MEDS: VANCOMYCIN HCL 1,000 MG, VIAL MATE ADAPTER 1 EACH in D5W 250 ML IV SCH (17:48)
[2023-03-10] MEDS: PANTOPRAZOLE 40MG TAB (PROTONIX) PO SCH (17:48)
[2023-03-10 19:27] VITALS: BP 128/64; TEMP 97.7; O2SAT 96
[2023-03-10] MEDS: traZODone 100 MG TAB PO SCH (21:11)
[2023-03-10] MEDS: PARoxetine 10MG TABLET PO SCH (21:21)
[2023-03-10 23:36] VITALS: BP 149/66; TEMP 97.7; O2SAT 96
[2023-03-11 03:02] VITALS: BP 158/73; TEMP 98.1; O2SAT 93
[2023-03-11] MEDS: PIPERACILLIN/TAZOBACTAM SOD 3.375 GM in D5W MINI-BAG PLUS 50 ML IV SCH ×4 (04:29→22:07)
[2023-03-11] MEDS: VANCOMYCIN HCL 1,000 MG, VIAL MATE ADAPTER 1 EACH in D5W 250 ML IV SCH (05:56)
[2023-03-11 06:58] LABS: BASO % 0.4 % (0.0-1.0); EOS # 0.4 10^3/uL (0.0-0.5); HEMATOCRIT 26.1 % (42.0-52.0); HEMOGLOBIN 7.6 g/dl (13.5-17.5); LYMPH # 0.3 10^3/uL (1.5-5.0); LYMPH % 4.2 % (24.0-44.0); MEAN CORPUSCULAR HEMOGLOBIN 26.4 pg (27.0-33.0); MEAN CORPUSCULAR HGB CONC 29.1 g/dl (32.0-36.5); MEAN CORPUSCULAR VOLUME 90.6 fl (80.0-96.0); MONO # 0.5 10^3/uL (0.0-0.8); MONO % 7.2 % (2.0-8.0); NEUTROPHILS % 81.8 % (36.0-66.0); PLATELET COUNT, AUTOMATED 296 10^3/uL (150-450); RED BLOOD COUNT 2.88 10^6/uL (4.30-6.10); WHITE BLOOD COUNT 7.3 10^3/uL (4.0-10.0)
[2023-03-11 07:26] LABS: BLOOD UREA NITROGEN 37 MG/DL (9-23); CALCIUM LEVEL 8.1 MG/DL (8.3-10.6); CARBON DIOXIDE LEVEL 25 MMOL/L (20-31); CHLORIDE LEVEL 105 MMOL/L (98-107); CREATININE FOR GFR 0.94 MG/DL (0.70-1.30); GLOMERULAR FILTRATION RATE > 60.0 (>42); GLUCOSE, FASTING 103 MG/DL (74-106); POTASSIUM SERUM 4.9 MMOL/L (3.5-5.1); SODIUM LEVEL 141 MMOL/L (136-145)
[2023-03-11 07:41] VITALS: BP 155/70; TEMP 97.2; O2SAT 94
[2023-03-11] MEDS: SENOKOT S TAB PO SCH ×2 (09:00→20:47)
[2023-03-11] MEDS: MIRALAX *UNIT DOSE* 17GM PACKET PO SCH (09:00)
[2023-03-11] MEDS: SIMVASTATIN 10 MG TAB PO SCH (09:48)
[2023-03-11] MEDS: PARoxetine 10MG TABLET PO SCH (09:48)
[2023-03-11] MEDS: PANTOPRAZOLE 40MG TAB (PROTONIX) PO SCH (09:48)
[2023-03-11] MEDS: oxyBUTYnin 5 MG TAB PO SCH (09:48)
[2023-03-11 16:00] VITALS: BP 158/78; TEMP 97.1; O2SAT 96
[2023-03-11 18:05] VITALS: BP 165/83; TEMP 98.4; O2SAT 91
[2023-03-11 20:50] VITALS: BP 163/81; TEMP 98.4; O2SAT 92
[2023-03-11] MEDS: FUROSEMIDE 40MG/4ML VIAL IV SCH (20:53)
[2023-03-11] MEDS: traZODone 100 MG TAB PO SCH (20:53)
[2023-03-11] MEDS ORDERED: VANCOMYCIN HCL 750 MG, VIAL MATE ADAPTER 1 EACH in D5W 250 ML IV SCH (21:00)
[2023-03-12] MEDS: PIPERACILLIN/TAZOBACTAM SOD 3.375 GM in D5W MINI-BAG PLUS 50 ML IV SCH ×4 (03:55→21:39)
[2023-03-12 05:28] LABS: BASO % 0.4 % (0.0-1.0); EOS # 0.6 10^3/uL (0.0-0.5); EOS % 7.6 % (0.0-3.0); HEMATOCRIT 29.1 % (42.0-52.0); HEMOGLOBIN 8.5 g/dl (13.5-17.5); LYMPH # 0.4 10^3/uL (1.5-5.0); LYMPH % 5.1 % (24.0-44.0); MEAN CORPUSCULAR HEMOGLOBIN 26.6 pg (27.0-33.0); MEAN CORPUSCULAR HGB CONC 29.2 g/dl (32.0-36.5); MEAN CORPUSCULAR VOLUME 91.2 fl (80.0-96.0); MONO # 0.7 10^3/uL (0.0-0.8); MONO % 8.6 % (2.0-8.0); NEUTROPHILS # 6.1 10^3/uL (1.5-8.5); NEUTROPHILS % 77.7 % (36.0-66.0); PLATELET COUNT, AUTOMATED 317 10^3/uL (150-450); RED BLOOD COUNT 3.19 10^6/uL (4.30-6.10); WHITE BLOOD COUNT 7.9 10^3/uL (4.0-10.0)
[2023-03-12 05:50] LABS: HEMOGLOBIN A1c 5.2 % (4.0-6.0)
[2023-03-12 05:51] LABS: BLOOD UREA NITROGEN 29 MG/DL (9-23); CALCIUM LEVEL 8.2 MG/DL (8.3-10.6); CARBON DIOXIDE LEVEL 29 MMOL/L (20-31); CHLORIDE LEVEL 107 MMOL/L (98-107); GLOMERULAR FILTRATION RATE > 60.0 (>42); GLUCOSE, FASTING 106 MG/DL (74-106); POTASSIUM SERUM 4.6 MMOL/L (3.5-5.1); SODIUM LEVEL 143 MMOL/L (136-145)
[2023-03-12 06:00] VITALS: BP 174/81; TEMP 97.5; O2SAT 92
[2023-03-12] MEDS: FUROSEMIDE 40MG/4ML VIAL IV SCH ×2 (08:52→16:21)
[2023-03-12] MEDS: SENOKOT S TAB PO SCH ×2 (08:52→21:00)
[2023-03-12] MEDS: oxyBUTYnin 5 MG TAB PO SCH (08:52)
[2023-03-12] MEDS: PANTOPRAZOLE 40MG TAB (PROTONIX) PO SCH (08:52)
[2023-03-12] MEDS: PARoxetine 10MG TABLET PO SCH (08:53)
[2023-03-12] MEDS: SIMVASTATIN 10 MG TAB PO SCH (08:54)
[2023-03-12] MEDS: MIRALAX *UNIT DOSE* 17GM PACKET PO SCH (08:54)
[2023-03-12 12:21] VITALS: BP 130/68
[2023-03-12] MEDS: amLODIPine 5 MG TAB PO SCH (12:23)
[2023-03-12 14:00] VITALS: BP 142/74; TEMP 97.9; O2SAT 95
[2023-03-12 20:08] VITALS: BP 158/68; TEMP 97.5; O2SAT 94
[2023-03-12] MEDS: traZODone 100 MG TAB PO SCH (21:00)
[2023-03-13] MEDS: PIPERACILLIN/TAZOBACTAM SOD 3.375 GM in D5W MINI-BAG PLUS 50 ML IV SCH ×2 (03:54→09:21)
[2023-03-13 05:26] LABS: BASO # 0.1 10^3/uL (0.0-0.2); BASO % 0.4 % (0.0-1.0); EOS # 0.7 10^3/uL (0.0-0.5); EOS % 5.8 % (0.0-3.0); HEMOGLOBIN 9.1 g/dl (13.5-17.5); LYMPH # 0.6 10^3/uL (1.5-5.0); LYMPH % 5.1 % (24.0-44.0); MEAN CORPUSCULAR HEMOGLOBIN 26.2 pg (27.0-33.0); MEAN CORPUSCULAR HGB CONC 29.4 g/dl (32.0-36.5); MEAN CORPUSCULAR VOLUME 89.3 fl (80.0-96.0); MONO # 0.9 10^3/uL (0.0-0.8); MONO % 7.6 % (2.0-8.0); NEUTROPHILS # 9.1 10^3/uL (1.5-8.5); NEUTROPHILS % 80.5 % (36.0-66.0); PLATELET COUNT, AUTOMATED 349 10^3/uL (150-450); RED BLOOD COUNT 3.47 10^6/uL (4.30-6.10); WHITE BLOOD COUNT 11.3 10^3/uL (4.0-10.0)
[2023-03-13 06:06] LABS: BLOOD UREA NITROGEN 29 MG/DL (9-23); CALCIUM LEVEL 8.1 MG/DL (8.3-10.6); CARBON DIOXIDE LEVEL 30 MMOL/L (20-31); CHLORIDE LEVEL 102 MMOL/L (98-107); CREATININE FOR GFR 0.95 MG/DL (0.70-1.30); GLOMERULAR FILTRATION RATE > 60.0 (>42); GLUCOSE, FASTING 129 MG/DL (74-106); POTASSIUM SERUM 4.8 MMOL/L (3.5-5.1); SODIUM LEVEL 141 MMOL/L (136-145)
[2023-03-13 06:15] VITALS: BP 152/71; TEMP 97.5; O2SAT 98
[2023-03-13] MEDS: oxyBUTYnin 5 MG TAB PO SCH (09:19)
[2023-03-13] MEDS: PANTOPRAZOLE 40MG TAB (PROTONIX) PO SCH (09:19)
[2023-03-13] MEDS: SENOKOT S TAB PO SCH (09:19)
[2023-03-13 09:20] VITALS: BP 138/79
[2023-03-13] MEDS: SIMVASTATIN 10 MG TAB PO SCH (09:20)
[2023-03-13] MEDS: amLODIPine 5 MG TAB PO SCH (09:20)
[2023-03-13] MEDS: PARoxetine 10MG TABLET PO SCH (09:21)
[2023-03-13] MEDS: FUROSEMIDE 40MG/4ML VIAL IV SCH (09:21)
[2023-03-13] MEDS: MIRALAX *UNIT DOSE* 17GM PACKET PO SCH (09:27)
[2023-03-13] MEDS ORDERED: INSULIN LISPRO (NovoLOG) PER UNIT SC SCH ×2 (12:00→21:00)
[2023-03-13] MEDS ORDERED: VANCOMYCIN HCL 1,000 MG, VIAL MATE ADAPTER 1 EACH in D5W 250 ML IV SCH (12:00)
[2023-03-13] MEDS ORDERED: GLIP2.5T6 PO (12:35)
== END 2023-03-13 14:14 | disposition home health service (06) | DRG 637 ==
LOC: EDBD 01:25 → M ED 01:25 → M ED INP 07:53 → ENRESERV 08:23 → M PCU 10:10 → M MSPAV 03-11 17:52
PROVIDERS: ADMIT Internal Medicine Nephrology; ATTEND Internal Medicine Nephrology
DX: E11.649 Type 2 diabetes mellitus with hypoglycemia without coma (principal); L89.314 Pressure ulcer of right buttock, stage 4; M86.68 Other chronic osteomyelitis, other site; L89.152 Pressure ulcer of sacral region, stage 2; G82.50 Quadriplegia, unspecified; K59.00 Constipation, unspecified; N31.9 Neuromuscular dysfunction of bladder, unspecified; I10 Essential (primary) hypertension; E78.5 Hyperlipidemia, unspecified; F32.A Depression, unspecified; K21.9 Gastro-esophageal reflux disease without esophagitis; N39.41 Urge incontinence; E55.9 Vitamin D deficiency, unspecified; D50.9 Iron deficiency anemia, unspecified; Z87.440 Personal history of urinary (tract) infections; R09.02 Hypoxemia; R33.9 Retention of urine, unspecified; L89.222 Pressure ulcer of left hip, stage 2; L89.616 Pressure-induced deep tissue damage of right heel

== ENCOUNTER 2023-04-19 18:06 | Inpatient (IN) | payer BC, MEDICARE ==
[~2023-04-19] VITALS: Ht 177.8 cm; Wt 83.5 kg
[~2023-04-19 18:06] MED LIST changes: +GLIP2.5T6 PO
[2023-04-19 19:07] LABS: VENOUS BASE EXCESS -1.5 (-2.0-2.0); VENOUS O2 SATURATION 72.8 % (60.0-80.0); VENOUS PARTIAL PRESSURE CO2 44.4 mmHg (38.0-50.0); VENOUS PARTIAL PRESSURE O2 41.7 mmHg (30.0-50.0); VENOUS PH 7.351 UNITS (7.330-7.430); VENOUS STANDARD HCO3 22.9 MMOL/L; VENOUS TOTAL CO2 25.4 MMOL/L (24.0-28.0)
[2023-04-19 19:22] LABS: BASO % 0.1 % (0.0-1.0); EOS % 0.1 % (0.0-3.0); HEMATOCRIT 21.4 % (42.0-52.0); LYMPH # 0.3 10^3/uL (1.5-5.0); LYMPH % 1.1 % (24.0-44.0); MEAN CORPUSCULAR HEMOGLOBIN 26.2 pg (27.0-33.0); MEAN CORPUSCULAR HGB CONC 29.9 g/dl (32.0-36.5); MEAN CORPUSCULAR VOLUME 87.7 fl (80.0-96.0); MONO # 1.1 10^3/uL (0.0-0.8); MONO % 3.8 % (2.0-8.0); NEUTROPHILS # 27.3 10^3/uL (1.5-8.5); NEUTROPHILS % 93.3 % (36.0-66.0); PLATELET COUNT, AUTOMATED 316 10^3/uL (150-450); RED BLOOD COUNT 2.44 10^6/uL (4.30-6.10)
[2023-04-19 19:24] LABS: HEMOGLOBIN 6.4 g/dl (13.5-17.5)
[2023-04-19 19:25] LABS: WHITE BLOOD COUNT 29.3 10^3/uL (4.0-10.0)
[2023-04-19 19:45] LABS: ALBUMIN 1.6 G/DL (3.2-5.2); BILIRUBIN,DIRECT 0.1 MG/DL (<0.4); BILIRUBIN,TOTAL 0.2 MG/DL (0.3-1.2); CALCIUM LEVEL 7.7 MG/DL (8.3-10.6); CREATININE FOR GFR 1.27 MG/DL (0.70-1.30); GLOMERULAR FILTRATION RATE 58.7 (>42); POTASSIUM SERUM 4.7 MMOL/L (3.5-5.1); TOTAL PROTEIN 5.2 G/DL (5.7-8.2)
[2023-04-19 19:47] LABS: THYROID STIMULATING HORMONE 4.416 uIU/ML (0.55-4.78)
[2023-04-19] MEDS ORDERED: cefTRIAXone SOD 1 GM in D5W MINI-BAG PLUS 50 ML IV ONE (20:00)
[2023-04-19] MEDS ORDERED: AZITHROMYCIN INJ 500 MG, VIAL MATE ADAPTER 1 EACH in NS 250 ML IV ONE (20:00)
[2023-04-19] MEDS ORDERED: NS 1,000 ML IV SCH (20:00)
[2023-04-19 22:15] VITALS: BP 99/51; TEMP 97.9; O2SAT 97
[2023-04-19] MEDS ORDERED: GLIP2.5T6 PO (22:22)
[2023-04-19] MEDS ORDERED: HOME MED LIST COMPLETE! XX SCH (22:25)
[2023-04-19] MEDS ORDERED: ALBUTEROL SULFATE 2.5MG/0.5ML INH NEB SOLN NEB PRN (23:30)
[2023-04-19] MEDS ORDERED: GLUCOSE 4GM CHEW TABLET PO PRN (23:30)
[2023-04-19] MEDS ORDERED: DEXTROSE 50% 50ML SYRINGE IV PRN (23:30)
[2023-04-19] MEDS ORDERED: GLUCAGON INJ 1MG VIAL SC PRN (23:30)
[2023-04-19] MEDS ORDERED: PILL CUTTER 1 EACH XX PRN (23:45)
[2023-04-20] VITALS (14 sets, daily range): BP systolic 73–121; BP diastolic 39–59; TEMP 97.1–98.8; O2SAT 92–100
[2023-04-20] MEDS: ACETAMINOPHEN TAB 650MG DOSE (2X325MG) PO PRN (00:14)
[2023-04-20 00:28] LABS: C REACTIVE PROTEIN QUANTITATIV 23.7 MG/DL (<1.0)
[2023-04-20 00:32] LABS: FERRITIN 1441.9 NG/ML (10.5-307.3)
[2023-04-20 00:37] LABS: PROCALCITONIN 20.38 ng/ml
[2023-04-20] MEDS ORDERED: NS 500 ML IV ONE ×2 (01:40→05:35)
[2023-04-20] MEDS ORDERED: COMBIVENT RESPIMAT 100-20MCG INHALER 4GM INH SCH (02:00)
[2023-04-20] MEDS ORDERED: REMDESIVIR 200 MG in NS 250 ML IV ONE (02:00)
[2023-04-20] MEDS ORDERED: IPRATROPIUM 0.5MG/ALBUTEROL 2.5MG INH SOL UD 3ML (DUONEB) NEB SCH (02:00)
[2023-04-20] MEDS ORDERED: NS 1,000 ML IV ONE ×2 (02:10→04:20)
[2023-04-20] MEDS ORDERED: ALBUTEROL 90 MCG/ACT 8GM HFA INHALER INH PRN (02:20)
[2023-04-20] MEDS: INSULIN LISPRO (NovoLOG) PER UNIT SC SCH ×5 (02:28→22:07)
[2023-04-20] MEDS ORDERED: PIPERACILLIN/TAZOBACTAM SOD 3.375 GM in D5W MINI-BAG PLUS 50 ML IV SCH (05:00)
[2023-04-20] MEDS ORDERED: MEROPENEM INJ 1 GM in IV 1 EA IV SCH (06:00)
[2023-04-20] MEDS ORDERED: AMPICILLIN SOD 1 GM in D5W MINI-BAG PLUS 100 ML IV SCH (06:00)
[2023-04-20 06:10] LABS: BASO % 0.1 % (0.0-1.0); EOS % 0.1 % (0.0-3.0); HEMATOCRIT 24.4 % (42.0-52.0); HEMOGLOBIN 7.5 g/dl (13.5-17.5); LYMPH # 0.2 10^3/uL (1.5-5.0); LYMPH % 0.9 % (24.0-44.0); MEAN CORPUSCULAR HEMOGLOBIN 26.9 pg (27.0-33.0); MEAN CORPUSCULAR HGB CONC 30.7 g/dl (32.0-36.5); MEAN CORPUSCULAR VOLUME 87.5 fl (80.0-96.0); MONO # 0.9 10^3/uL (0.0-0.8); MONO % 3.5 % (2.0-8.0); NEUTROPHILS # 23.3 10^3/uL (1.5-8.5); NEUTROPHILS % 94.2 % (36.0-66.0); PLATELET COUNT, AUTOMATED 232 10^3/uL (150-450); RED BLOOD COUNT 2.79 10^6/uL (4.30-6.10); WHITE BLOOD COUNT 24.8 10^3/uL (4.0-10.0)
[2023-04-20 06:25] LABS: INR 1.55
[2023-04-20 06:26] LABS: PARTIAL THROMBOPLASTIN TIME 40.7 SECONDS (24.8-34.2)
[2023-04-20 06:35] LABS: ALBUMIN 1.3 G/DL (3.2-5.2); ALKALINE PHOSPHATASE 86 U/L (46-116); ALT/SGPT 25 U/L (7.0-40); AST/SGOT 19 U/L (<34); BILIRUBIN,DIRECT 0.6 MG/DL (<0.4); BILIRUBIN,TOTAL 0.9 MG/DL (0.3-1.2); BLOOD UREA NITROGEN 50 MG/DL (9-23); CALCIUM LEVEL 6.9 MG/DL (8.3-10.6); CARBON DIOXIDE LEVEL 23 MMOL/L (20-31); CHLORIDE LEVEL 101 MMOL/L (98-107); GLOMERULAR FILTRATION RATE > 60.0 (>42); GLUCOSE, FASTING 142 MG/DL (74-106); MAGNESIUM LEVEL 1.2 MG/DL (1.8-2.4); PHOSPHORUS LEVEL 4.3 MG/DL (2.4-5.1); POTASSIUM SERUM 4.1 MMOL/L (3.5-5.1); SODIUM LEVEL 132 MMOL/L (136-145); TOTAL PROTEIN 4.2 G/DL (5.7-8.2)
[2023-04-20 06:36] LABS: D-DIMER QUANT 6.66 ug/mL (<0.5)
[2023-04-20] MEDS: COMBIVENT RESPIMAT 100-20MCG INHALER 4GM INH SCH ×3 (07:21→19:44)
[2023-04-20] MEDS ORDERED: VANCOMYCIN HCL 1,000 MG, VIAL MATE ADAPTER 1 EACH in D5W 250 ML IV SCH (09:45)
[2023-04-20] MEDS: HEPARIN SOD (PORCINE) 5000UNITS/ML 1ML VIAL/SYRINGE SQ SCH ×2 (10:02→22:07)
[2023-04-20] MEDS: SIMVASTATIN 10 MG TAB PO SCH (10:02)
[2023-04-20] MEDS: PANTOPRAZOLE 40MG TAB (PROTONIX) PO SCH (10:03)
[2023-04-20] MEDS: PARoxetine 10MG TABLET PO SCH (10:03)
[2023-04-20] MEDS ORDERED: VANCOMYCIN HCL 750 MG, VIAL MATE ADAPTER 1 EACH in D5W 250 ML IV ONE ×2 (11:00→12:00)
[2023-04-20] MEDS: NS 1,000 ML IV SCH (12:26)
[2023-04-20] MEDS: MAG SULF 1GM/100ML (MAG RUN) 1 GM in IV 1 EA IV SCH ×3 (13:20→16:06)
[2023-04-20 15:00] LABS: ANTI-STREPTOLYSIN O QUANT 67.6 IU/ML (<195)
[2023-04-20] MEDS: PIPERACILLIN/TAZOBACTAM SOD 4.5 GM in D5W MINI-BAG PLUS 50 ML IV SCH ×2 (16:06→22:07)
[2023-04-20 16:22] LABS: FOLATE 11.86 NG/ML (>5.4)
[2023-04-20] MEDS ORDERED: ISOVUE-370 76% 100ML VIAL As Ordered ONE (18:34)
[2023-04-20] MEDS ORDERED: cefTRIAXone SOD 1 GM in D5W MINI-BAG PLUS 50 ML IV SCH (21:00)
[2023-04-20] MEDS ORDERED: AZITHROMYCIN 250MG TABLET PO SCH (21:00)
[2023-04-21] VITALS (19 sets, daily range): BP systolic 105–132; BP diastolic 51–62; TEMP 97.5–99.7; O2SAT 90–98
[2023-04-21] MEDS: COMBIVENT RESPIMAT 100-20MCG INHALER 4GM INH SCH ×4 (01:10→20:39)
[2023-04-21] MEDS: REMDESIVIR 100 MG in NS 250 ML IV SCH (02:37)
[2023-04-21] MEDS: NS 1,000 ML IV SCH (03:59)
[2023-04-21] MEDS: PIPERACILLIN/TAZOBACTAM SOD 4.5 GM in D5W MINI-BAG PLUS 50 ML IV SCH ×4 (03:59→21:14)
[2023-04-21 06:29] LABS: BASO # 0.1 10^3/uL (0.0-0.2); BASO % 0.3 % (0.0-1.0); EOS # 0.1 10^3/uL (0.0-0.5); EOS % 0.8 % (0.0-3.0); HEMATOCRIT 26.5 % (42.0-52.0); HEMOGLOBIN 8.2 g/dl (13.5-17.5); LYMPH # 0.4 10^3/uL (1.5-5.0); LYMPH % 1.9 % (24.0-44.0); MEAN CORPUSCULAR HEMOGLOBIN 26.6 pg (27.0-33.0); MEAN CORPUSCULAR HGB CONC 30.9 g/dl (32.0-36.5); MONO # 0.6 10^3/uL (0.0-0.8); MONO % 3.4 % (2.0-8.0); NEUTROPHILS # 17.1 10^3/uL (1.5-8.5); NEUTROPHILS % 92.5 % (36.0-66.0); PLATELET COUNT, AUTOMATED 266 10^3/uL (150-450); RED BLOOD COUNT 3.08 10^6/uL (4.30-6.10); WHITE BLOOD COUNT 18.5 10^3/uL (4.0-10.0)
[2023-04-21 06:56] LABS: C REACTIVE PROTEIN QUANTITATIV 18.9 MG/DL (<1.0)
[2023-04-21 06:59] LABS: ALBUMIN 1.3 G/DL (3.2-5.2); BILIRUBIN,TOTAL 0.2 MG/DL (0.3-1.2); CALCIUM LEVEL 7.6 MG/DL (8.3-10.6); CREATININE FOR GFR 1.31 MG/DL (0.70-1.30); GLOMERULAR FILTRATION RATE 56.6 (>42); MAGNESIUM LEVEL 2.3 MG/DL (1.8-2.4); POTASSIUM SERUM 4.1 MMOL/L (3.5-5.1); TOTAL PROTEIN 4.4 G/DL (5.7-8.2)
[2023-04-21] MEDS ORDERED: VANCOMYCIN HCL 750 MG, VIAL MATE ADAPTER 1 EACH in D5W 250 ML IV SCH (07:00)
[2023-04-21] MEDS: INSULIN LISPRO (NovoLOG) PER UNIT SC SCH ×4 (07:30→21:00)
[2023-04-21 07:44] LABS: VANCOMYCIN RANDOM 14.4 UG/ML
[2023-04-21] MEDS ORDERED: VANCOMYCIN HCL 500 MG in D5W MINI-BAG PLUS 100 ML IV SCH (08:00)
[2023-04-21] MEDS: HEPARIN SOD (PORCINE) 5000UNITS/ML 1ML VIAL/SYRINGE SQ SCH ×2 (09:34→21:14)
[2023-04-21] MEDS: PARoxetine 10MG TABLET PO SCH (09:35)
[2023-04-21] MEDS: SIMVASTATIN 10 MG TAB PO SCH (09:35)
[2023-04-21] MEDS: PANTOPRAZOLE 40MG TAB (PROTONIX) PO SCH (09:36)
[2023-04-21] MEDS ORDERED: FUROSEMIDE 20MG/2ML VIAL IV ONE (16:40)
[2023-04-21 17:08] LABS: PERCENT SATURATION 7.2 % (19.7-50.0)
[2023-04-22] VITALS (9 sets, daily range): BP systolic 100–149; BP diastolic 50–80; TEMP 96.8–98.8; O2SAT 95–100
[2023-04-22] MEDS: COMBIVENT RESPIMAT 100-20MCG INHALER 4GM INH SCH ×4 (01:31→20:08)
[2023-04-22] MEDS: REMDESIVIR 100 MG in NS 250 ML IV SCH (03:02)
[2023-04-22] MEDS: PIPERACILLIN/TAZOBACTAM SOD 4.5 GM in D5W MINI-BAG PLUS 50 ML IV SCH (04:23)
[2023-04-22 06:13] LABS: BASO # 0.1 10^3/uL (0.0-0.2); BASO % 0.3 % (0.0-1.0); EOS # 0.2 10^3/uL (0.0-0.5); EOS % 1.1 % (0.0-3.0); HEMATOCRIT 26.5 % (42.0-52.0); HEMOGLOBIN 8.3 g/dl (13.5-17.5); LYMPH # 0.5 10^3/uL (1.5-5.0); LYMPH % 2.1 % (24.0-44.0); MEAN CORPUSCULAR HEMOGLOBIN 26.9 pg (27.0-33.0); MEAN CORPUSCULAR HGB CONC 31.3 g/dl (32.0-36.5); MONO # 0.7 10^3/uL (0.0-0.8); MONO % 3.4 % (2.0-8.0); NEUTROPHILS % 91.7 % (36.0-66.0); PLATELET COUNT, AUTOMATED 293 10^3/uL (150-450); RED BLOOD COUNT 3.08 10^6/uL (4.30-6.10); WHITE BLOOD COUNT 21.8 10^3/uL (4.0-10.0)
[2023-04-22 06:45] LABS: C REACTIVE PROTEIN QUANTITATIV 16.7 MG/DL (<1.0)
[2023-04-22 06:46] LABS: CALCIUM LEVEL 7.5 MG/DL (8.3-10.6); CREATININE FOR GFR 1.81 MG/DL (0.70-1.30); POTASSIUM SERUM 4.9 MMOL/L (3.5-5.1)
[2023-04-22] MEDS: INSULIN LISPRO (NovoLOG) PER UNIT SC SCH ×4 (09:40→20:39)
[2023-04-22] MEDS: PANTOPRAZOLE 40MG TAB (PROTONIX) PO SCH (10:00)
[2023-04-22] MEDS: PARoxetine 10MG TABLET PO SCH (10:00)
[2023-04-22] MEDS: SIMVASTATIN 10 MG TAB PO SCH (10:00)
[2023-04-22] MEDS: HEPARIN SOD (PORCINE) 5000UNITS/ML 1ML VIAL/SYRINGE SQ SCH ×2 (10:18→20:39)
[2023-04-22] MEDS: PIPERACILLIN/TAZOBACTAM SOD 3.375 GM in D5W MINI-BAG PLUS 50 ML IV SCH ×3 (10:19→23:39)
[2023-04-22] MEDS ORDERED: propofoL 200 MG/20 ML VIAL As Ordered ONE (15:17)
[2023-04-22] MEDS ORDERED: LIDOCAINE 2% 100MG/5ML SDV (FOR ANES.) As Ordered ONE (15:17)
[2023-04-22] MEDS ORDERED: ROCURONIUM BROMIDE 50MG/5ML VIAL As Ordered ONE (15:17)
[2023-04-22] MEDS ORDERED: SUGAMMADEX SODIUM 500 MG/5 ML VIAL (BRIDION) As Ordered ONE (15:17)
[2023-04-22] MEDS ORDERED: ONDANSETRON 4MG 2ML VIAL As Ordered ONE (15:17)
[2023-04-22] MEDS ORDERED: fentaNYL 100 MCG/2 ML INJECTION As Ordered ONE (16:18)
[2023-04-22] MEDS ORDERED: PHENYLephrine 500MCG 5ML (100MCG/ML) SYRINGE As Ordered ONE (16:49)
[2023-04-22] MEDS ORDERED: HYDROMORPHONE HCL 0.5 MG/ 0.5 ML SYRINGE IV PRN (17:40)
[2023-04-22] MEDS ORDERED: fentaNYL 100 MCG/2 ML INJECTION IV PRN (17:40)
[2023-04-22] MEDS ORDERED: oxyCODONE 5MG TAB PO PRN (17:40)
[2023-04-22] MEDS ORDERED: ONDANSETRON 4MG 2ML VIAL IV PRN (17:40)
[2023-04-22] MEDS ORDERED: LR 1,000 ML IV SCH (17:40)
[2023-04-23] VITALS (13 sets, daily range): BP systolic 100–134; BP diastolic 53–80; TEMP 96.7–98.6; O2SAT 84–97
[2023-04-23] MEDS: COMBIVENT RESPIMAT 100-20MCG INHALER 4GM INH SCH ×4 (02:47→19:55)
[2023-04-23] MEDS: PIPERACILLIN/TAZOBACTAM SOD 3.375 GM in D5W MINI-BAG PLUS 50 ML IV SCH (04:25)
[2023-04-23 04:58] LABS: BASO % 0.1 % (0.0-1.0); HEMATOCRIT 29.3 % (42.0-52.0); HEMOGLOBIN 8.7 g/dl (13.5-17.5); LYMPH # 0.2 10^3/uL (1.5-5.0); LYMPH % 1.3 % (24.0-44.0); MEAN CORPUSCULAR HEMOGLOBIN 26.4 pg (27.0-33.0); MEAN CORPUSCULAR HGB CONC 29.7 g/dl (32.0-36.5); MEAN CORPUSCULAR VOLUME 88.8 fl (80.0-96.0); MONO # 0.2 10^3/uL (0.0-0.8); MONO % 0.8 % (2.0-8.0); NEUTROPHILS # 17.2 10^3/uL (1.5-8.5); NEUTROPHILS % 96.8 % (36.0-66.0); PLATELET COUNT, AUTOMATED 288 10^3/uL (150-450); WHITE BLOOD COUNT 17.8 10^3/uL (4.0-10.0)
[2023-04-23 05:20] LABS: C REACTIVE PROTEIN QUANTITATIV 14.7 MG/DL (<1.0)
[2023-04-23 05:22] LABS: ALBUMIN 1.2 G/DL (3.2-5.2); CALCIUM LEVEL 7.6 MG/DL (8.3-10.6); CREATININE FOR GFR 2.4 MG/DL (0.70-1.30); GLOMERULAR FILTRATION RATE 28.2 (>42); POTASSIUM SERUM 5.8 MMOL/L (3.5-5.1)
[2023-04-23] MEDS: PATIROMER SORBITEX CALCIUM 8.4 GM POWDER PACKET (VELTASSA) PO ONE ×2 (09:00→12:13)
[2023-04-23] MEDS: SIMVASTATIN 10 MG TAB PO SCH (10:44)
[2023-04-23] MEDS: PARoxetine 10MG TABLET PO SCH (10:44)
[2023-04-23] MEDS: INSULIN LISPRO (NovoLOG) PER UNIT SC SCH ×4 (10:44→21:00)
[2023-04-23] MEDS: PANTOPRAZOLE 40MG TAB (PROTONIX) PO SCH (10:44)
[2023-04-23] MEDS: HEPARIN SOD (PORCINE) 5000UNITS/ML 1ML VIAL/SYRINGE SQ SCH ×2 (10:45→21:45)
[2023-04-23] MEDS: PIPERACILLIN/TAZOBACTAM SOD 2.25 GM in D5W MINI-BAG PLUS 50 ML IV SCH ×3 (10:46→21:44)
[2023-04-23] MEDS ORDERED: FUROSEMIDE 100MG/10ML VIAL IV ONE (11:00)
[2023-04-23 16:08] LABS: CLOSTRIDIUM DIFFICILE PCR NEGATIVE (NEGATIVE)
[2023-04-23] MEDS: LACTOBACILLUS ACIDOPHILUS CAP (BACID) PO SCH (18:10)
[2023-04-23] MEDS: ACETAMINOPHEN TAB 650MG DOSE (2X325MG) PO PRN (21:45)
[2023-04-24] VITALS (15 sets, daily range): BP systolic 111–135; BP diastolic 53–63; TEMP 96.2–99.4; O2SAT 90–99
[2023-04-24] MEDS: COMBIVENT RESPIMAT 100-20MCG INHALER 4GM INH SCH ×4 (02:00→20:17)
[2023-04-24] MEDS: PIPERACILLIN/TAZOBACTAM SOD 2.25 GM in D5W MINI-BAG PLUS 50 ML IV SCH ×4 (04:46→21:40)
[2023-04-24 07:10] LABS: C REACTIVE PROTEIN QUANTITATIV 9.2 MG/DL (<1.0)
[2023-04-24 07:11] LABS: CALCIUM LEVEL 7.6 MG/DL (8.3-10.6); CREATININE FOR GFR 2.89 MG/DL (0.70-1.30); GLOMERULAR FILTRATION RATE 22.7 (>42); POTASSIUM SERUM 5.7 MMOL/L (3.5-5.1)
[2023-04-24] MEDS: INSULIN LISPRO (NovoLOG) PER UNIT SC SCH ×4 (07:30→21:00)
[2023-04-24 07:39] LABS: BASO % 0.1 % (0.0-1.0); EOS # 0.1 10^3/uL (0.0-0.5); EOS % 0.5 % (0.0-3.0); HEMATOCRIT 27.9 % (42.0-52.0); HEMOGLOBIN 8.1 g/dl (13.5-17.5); LYMPH # 0.6 10^3/uL (1.5-5.0); LYMPH % 3.8 % (24.0-44.0); MEAN CORPUSCULAR HEMOGLOBIN 26.6 pg (27.0-33.0); MEAN CORPUSCULAR VOLUME 91.5 fl (80.0-96.0); MONO # 0.6 10^3/uL (0.0-0.8); NEUTROPHILS # 13.5 10^3/uL (1.5-8.5); NEUTROPHILS % 88.1 % (36.0-66.0); PLATELET COUNT, AUTOMATED 267 10^3/uL (150-450); RED BLOOD COUNT 3.05 10^6/uL (4.30-6.10); WHITE BLOOD COUNT 15.4 10^3/uL (4.0-10.0)
[2023-04-24] MEDS: HEPARIN SOD (PORCINE) 5000UNITS/ML 1ML VIAL/SYRINGE SQ SCH ×2 (09:10→21:40)
[2023-04-24] MEDS: PARoxetine 10MG TABLET PO SCH (09:10)
[2023-04-24] MEDS: PANTOPRAZOLE 40MG TAB (PROTONIX) PO SCH (09:10)
[2023-04-24] MEDS: LOPERAMIDE 2 MG CAPLET PO PRN ×2 (09:11→21:41)
[2023-04-24] MEDS: LACTOBACILLUS ACIDOPHILUS CAP (BACID) PO SCH ×2 (09:11→17:50)
[2023-04-24] MEDS: SIMVASTATIN 10 MG TAB PO SCH (09:11)
[2023-04-24] MEDS: SODIUM BICARBONATE 150 MEQ in STERILE WATER LITER BAG 1,000 ML IV SCH (13:39)
[2023-04-24] MEDS: PATIROMER SORBITEX CALCIUM 8.4 GM POWDER PACKET (VELTASSA) PO SCH (13:39)
[2023-04-24] MEDS: ACETAMINOPHEN TAB 650MG DOSE (2X325MG) PO PRN (21:41)
[2023-04-25] VITALS (20 sets, daily range): BP systolic 121–150; BP diastolic 58–94; TEMP 97.1–98.8; O2SAT 93–98
[2023-04-25] MEDS: SODIUM BICARBONATE 150 MEQ in STERILE WATER LITER BAG 1,000 ML IV SCH (01:54)
[2023-04-25] MEDS: COMBIVENT RESPIMAT 100-20MCG INHALER 4GM INH SCH ×3 (02:00→14:26)
[2023-04-25] MEDS: PIPERACILLIN/TAZOBACTAM SOD 2.25 GM in D5W MINI-BAG PLUS 50 ML IV SCH ×2 (04:23→09:29)
[2023-04-25] MEDS: INSULIN LISPRO (NovoLOG) PER UNIT SC SCH ×2 (07:30→12:15)
[2023-04-25 07:50] LABS: HEMATOCRIT 27.5 % (42.0-52.0); HEMOGLOBIN 7.9 g/dl (13.5-17.5); MEAN CORPUSCULAR HEMOGLOBIN 26.4 pg (27.0-33.0); MEAN CORPUSCULAR HGB CONC 28.7 g/dl (32.0-36.5); PLATELET COUNT, AUTOMATED 221 10^3/uL (150-450); RED BLOOD COUNT 2.99 10^6/uL (4.30-6.10); WHITE BLOOD COUNT 11.8 10^3/uL (4.0-10.0)
[2023-04-25 08:19] LABS: CALCIUM LEVEL 7.4 MG/DL (8.3-10.6); CREATININE FOR GFR 3.3 MG/DL (0.70-1.30); EOSINOPHILS 6 % (0-3); GLOMERULAR FILTRATION RATE 19.5 (>42); LYMPHOCYTES 3 % (16-44); METAMYELOCYTES 1 % (0-0); MONOCYTES 7 % (0-5); MYELOCYTES 1 % (0-0); NEUTROPHILS 82 % (28-66); POTASSIUM SERUM 4.7 MMOL/L (3.5-5.1)
[2023-04-25 08:20] LABS: ANISOCYTOSIS 2+; HYPOCHROMASIA 2+; PLATELET ESTIMATE NORMAL (NORMAL); POIKILOCYTOSIS 1+; POLYCHROMASIA 1+
[2023-04-25 08:21] LABS: SCHISTOCYTES 1+
[2023-04-25] MEDS: PARoxetine 10MG TABLET PO SCH (09:29)
[2023-04-25] MEDS: SIMVASTATIN 10 MG TAB PO SCH (09:29)
[2023-04-25] MEDS: PANTOPRAZOLE 40MG TAB (PROTONIX) PO SCH (09:29)
[2023-04-25] MEDS: HEPARIN SOD (PORCINE) 5000UNITS/ML 1ML VIAL/SYRINGE SQ SCH (09:29)
[2023-04-25] MEDS: LACTOBACILLUS ACIDOPHILUS CAP (BACID) PO SCH ×2 (09:29→17:22)
[2023-04-25] MEDS: PATIROMER SORBITEX CALCIUM 8.4 GM POWDER PACKET (VELTASSA) PO SCH (12:15)
[2023-04-25] MEDS ORDERED: SODIUM BICARBONATE 75 MEQ in NS 0.45% 1,000 ML IV SCH (13:00)
[2023-04-25] MEDS ORDERED: AMPICILLIN SOD/SULBACTAM SOD 3 GM in D5W MINI-BAG PLUS 100 ML IV SCH (16:00)
[2023-04-25] MEDS ORDERED: MORPHINE 10MG/0.5ML ORAL CONCENTRATE SOLUTION U/D SL PRN (18:40)
[2023-04-25] MEDS ORDERED: SCOPOLAMINE 1MG TRANSDERMAL PATCH TOP PRN (18:40)
[2023-04-25] MEDS ORDERED: LORazepam 1 MG TAB PO PRN (18:40)
[2023-04-25] MEDS ORDERED: HYOSCYAMINE SULFATE 0.125 MG SUBL TABLET PO PRN (18:40)
[2023-04-26] MEDS: PARoxetine 10MG TABLET PO SCH (08:51)
[2023-04-26] MEDS: PANTOPRAZOLE 40MG TAB (PROTONIX) PO SCH (08:51)
[2023-04-27] MEDS: PARoxetine 10MG TABLET PO SCH (09:08)
[2023-04-27] MEDS: PANTOPRAZOLE 40MG TAB (PROTONIX) PO SCH (09:08)
[2023-04-27] MEDS ORDERED: ATIV1TAB10 PO (09:55)
[2023-04-27] MEDS ORDERED: HYOS125TA PO (09:55)
[2023-04-27] MEDS ORDERED: VENTAER INH (09:55)
[2023-04-27] MEDS ORDERED: MORP1SOL5 PO (09:55)
[2023-04-27] MEDS ORDERED: LOPE2CA PO (09:55)
== END 2023-04-27 14:38 | disposition hospice, home (50) | DRG 853 ==
LOC: M ED 18:06 → M ED INP 23:28 → M PCU 04-20 01:00 → M MSPAV 04-26 15:37
PROVIDERS: ADMIT Internal Medicine; ATTEND Internal Medicine
PROC: 30233N1 Transfusion of Nonautologous Red Blood Cells into Peripheral Vein, Percutaneous Approach (ICD-10-PCS; 2023-04-19)
PROC: B246ZZZ Ultrasonography of Right and Left Heart (ICD-10-PCS; 2023-04-21)
PROC: 0QB20ZZ Excision of Right Pelvic Bone, Open Approach (ICD-10-PCS; 2023-04-22)
PROC: 30233J1 Transfusion of Nonautologous Serum Albumin into Peripheral Vein, Percutaneous Approach (ICD-10-PCS; 2023-04-22)
PROC: 0QB10ZZ Excision of Sacrum, Open Approach (ICD-10-PCS; principal; 2023-04-22 15:30)
DX: A41.81 Sepsis due to Enterococcus (principal); G82.50 Quadriplegia, unspecified; J18.9 Pneumonia, unspecified organism; U07.1 COVID-19; J15.9 Unspecified bacterial pneumonia; L89.154 Pressure ulcer of sacral region, stage 4; L89.314 Pressure ulcer of right buttock, stage 4; J98.11 Atelectasis; N39.0 Urinary tract infection, site not specified; M86.68 Other chronic osteomyelitis, other site; E87.1 Hypo-osmolality and hyponatremia; N17.9 Acute kidney failure, unspecified; E46 Unspecified protein-calorie malnutrition; E87.20 Acidosis, unspecified; Z51.5 Encounter for palliative care; Z66 Do not resuscitate; D64.9 Anemia, unspecified; E11.69 Type 2 diabetes mellitus with other specified complication; I10 Essential (primary) hypertension; K21.9 Gastro-esophageal reflux disease without esophagitis; F32.A Depression, unspecified; G47.33 Obstructive sleep apnea (adult) (pediatric); E78.00 Pure hypercholesterolemia, unspecified; R65.20 Severe sepsis without septic shock; N31.9 Neuromuscular dysfunction of bladder, unspecified; E78.5 Hyperlipidemia, unspecified; L89.210 Pressure ulcer of right hip, unstageable; L89.220 Pressure ulcer of left hip, unstageable; N39.41 Urge incontinence; E55.9 Vitamin D deficiency, unspecified; E61.1 Iron deficiency; R19.7 Diarrhea, unspecified; E87.5 Hyperkalemia; Z79.84 Long term (current) use of oral hypoglycemic drugs; Z79.899 Other long term (current) drug therapy